=== PATIENT | female | born 1950 | race Caucasian/White ===

== ENCOUNTER 2019-02-02 01:54 | Emergency (ER) | payer MEDICARE, BC ==
[~2019-02-02] VITALS: Ht 152.4 cm; Wt 71.0 kg
[2019-02-02] MEDS ORDERED: normal saline 1000ML IV soln IVB ONE (02:10)
[2019-02-02] MEDS ORDERED: ondansetron/PF 4mg/2ml inj IV ONE (02:10)
[2019-02-02] MEDS: morphine 4 MG/ML inj SYRINge IV PRN ×2 (02:24→04:01)
[2019-02-02 02:41] LABS: BASOPHILS # (AUTO) 0.1 X10'3 (0-0.2); BASOPHILS % (AUTO) 1.1 % (0-1); EOSINOPHILS # (AUTO) 0.3 X10'3 (0-0.9); EOSINOPHILS % (AUTO) 3.8 % (0-6); HEMATOCRIT 38.7 % (35.0-45.0); HEMOGLOBIN 13.3 g/dl (12.0-16.0); LYMPHOCYTES # (AUTO) 1.6 X10'3 (1.1-4.8); LYMPHOCYTES % (AUTO) 24.8 % (21-51); MEAN CORPUSCULAR HEMOGLOBIN 31.3 PG (27.0-31.0); MEAN CORPUSCULAR HGB CONC 34.4 g/dL (33.0-36.5); MEAN CORPUSCULAR VOLUME 90.9 FL (78-98); MEAN PLATELET VOLUME 7.3 FL (7.4-10.4); MONOCYTES # (AUTO) 0.4 X10'3 (0-0.9); MONOCYTES % (AUTO) 6.8 % (2-12); NEUTROPHILS # (AUTO) 4.1 X10'3 (1.8-7.7); NEUTROPHILS % (AUTO) 63.5 % (42-75); PLATELET COUNT 267 X10'3 (140-440); RED BLOOD COUNT 4.25 X10'6 (4.20-5.60); RED CELL DISTRIBUTION WIDTH 13.3 % (11.5-14.5); WHITE BLOOD COUNT 6.5 X10'3 (4.5-11.0)
[2019-02-02 02:47] LABS: ALANINE AMINOTRANSFERASE 31 U/L (12-78); ALBUMIN 3.8 G/DL (3.4-5.0); ALBUMIN/GLOBULIN RATIO 1.2 (1.1-1.5); ALKALINE PHOSPHATASE 85 IU/L (46-116); ANION GAP 9 (8-16); ASPARTATE AMINO TRANSFERASE 18 U/L (10-37); BILIRUBIN,TOTAL 0.2 MG/DL (0.1-1.0); BLOOD UREA NITROGEN 18 MG/DL (7-18); BUN/CREATININE RATIO 20.7 (6.6-38.0); CALCIUM 9.2 MG/DL (8.5-10.1); CHLORIDE 106 MMOL/L (99-107); CREATININE 0.87 MG/DL (0.40-0.90); GLUCOSE 140 MG/DL (70-104); LIPASE 213 U/L (73-393); POTASSIUM 3.3 MMOL/L (3.5-5.1); SODIUM 140 MMOL/L (135-145); TOTAL CARBON DIOXIDE 25.3 MMOL/L (24-32); TOTAL PROTEIN 6.9 G/DL (6.4-8.2); eGFR 65 ML/MIN
[2019-02-02] MEDS ORDERED: LEVO75TA7 PO (04:06)
[2019-02-02] MEDS ORDERED: ONDA4TAB6 PO (04:07)
[2019-02-02] MEDS ORDERED: potassium Cl 20 mEq SR tablet PO ONE (04:10)
[2019-02-02 04:16] LABS: CLARITY,URINE CLEAR (Clear); COLOR,URINE YELLOW (Yellow); GLUCOSE, URINE NEGATIVE (Neg); KETONES,URINE NEGATIVE (Neg); LEUKOCYTE ESTERASE ,URINE NEGATIVE (Neg); NITRITES, URINE NEGATIVE (Neg); OCCULT BLOOD,URINE NEGATIVE (Neg); PROTEIN,URINE NEGATIVE (Neg); UROBILINOGEN,URINE 0.2 E.U/dL (0.2-1.0)
[2019-02-02 04:20] LABS: UA COLLECTION TYPE STRAIGHT CATH
[2019-02-02 04:26] VITALS: BP 106/74
== END 2019-02-02 04:27 | disposition home or self-care (01) ==
LOC: ER 01:55
DX: K52.9 Noninfective gastroenteritis and colitis, unspecified (principal); Z98.890 Other specified postprocedural states; Z85.9 Personal history of malignant neoplasm, unspecified; Z79.899 Other long term (current) drug therapy
CPT/HCPCS: 36415; 74176; 80053; 81003; 83690; 85025; 96361; 96374; 96375; 99284; J2270; J2405; J7030

== ENCOUNTER 2022-12-06 05:41 | Day surgery (SDC) | payer MEDICARE, BC ==
[2022-11-29 15:35] LABS: BILIRUBIN,URINE NEGATIVE (Neg); CLARITY,URINE CLEAR (Clear); COLOR,URINE YELLOW (Yellow); GLUCOSE, URINE NEGATIVE (Neg); KETONES,URINE NEGATIVE (Neg); LEUKOCYTE ESTERASE ,URINE NEGATIVE (Neg); NITRITES, URINE NEGATIVE (Neg); OCCULT BLOOD,URINE NEGATIVE (Neg); PROTEIN,URINE NEGATIVE (Neg); UROBILINOGEN,URINE 0.2 E.U/dL (0.2-1.0)
[2022-11-29 15:40] LABS: UA COLLECTION TYPE VOIDED
[2022-11-29 16:10] LABS: BASOPHILS % (AUTO) 0.7 % (0-1); EOSINOPHILS # (AUTO) 0.6 X10'3 (0-0.9); EOSINOPHILS % (AUTO) 9.6 % (0-6); LYMPHOCYTES # (AUTO) 2.1 X10'3 (1.1-4.8); LYMPHOCYTES % (AUTO) 32.3 % (21-51); MEAN CORPUSCULAR HEMOGLOBIN 30.9 PG (27.0-31.0); MEAN CORPUSCULAR HGB CONC 33.8 g/dL (33.0-36.5); MEAN CORPUSCULAR VOLUME 91.2 FL (78-98); MEAN PLATELET VOLUME 7.6 FL (7.4-10.4); MONOCYTES # (AUTO) 0.4 X10'3 (0-0.9); NEUTROPHILS # (AUTO) 3.3 X10'3 (1.8-7.7); NEUTROPHILS % (AUTO) 51.4 % (42-75); PRE OP HEMATOCRIT 41.3 % (35.0-45.0); PRE OP PLATELET COUNT 316 X10'3 (140-440); PRE OP WHITE BLOOD COUNT 6.5 10'3 (4.8-10.8); RED BLOOD COUNT 4.52 X10'6 (4.20-5.60); RED CELL DISTRIBUTION WIDTH 13.9 % (11.5-14.5)
[2022-11-29 16:25] LABS: ALBUMIN 3.7 G/DL (3.4-5.0); ALBUMIN/GLOBULIN RATIO 1.1 (1.1-1.5); ALKALINE PHOSPHATASE 92 IU/L (46-116); BLOOD UREA NITROGEN 13 MG/DL (7-18); CALCIUM 9.1 MG/DL (8.5-10.1); CHLORIDE 106 MMOL/L (99-107); CREATININE 0.81 MG/DL (0.40-0.90); PRE OP ALT 25 U/L (30-65); PRE OP ANION GAP 4 (8-16); PRE OP AST 18 U/L (10-37); PRE OP BILIRUB, TOTAL 0.2 MG/DL (0.0-1.0); PRE OP GLUCOSE 108 MG/DL (70-104); PRE OP POTASSIUM 3.5 MMOL/L (3.4-5.1); PRE OP SODIUM 137 MMOL/L (135-145); TOTAL CARBON DIOXIDE 26.8 MMOL/L (24-32); eGFR 70 ML/MIN
[~2022-12-06] VITALS: Ht 149.9 cm; Wt 74.2 kg
[2022-12-06] VITALS (34 sets, daily range): BP systolic 98–127; BP diastolic 46–66; PULSE 47–77; RESP 11–22; TEMP 97.5–97.9; O2SAT 91–100
[2022-12-06] MEDS: ceFOXitin 2GM-NS 100mL ADDvant 100 ML IV ONE ×2 (05:30→06:33)
[~2022-12-06 05:41] MED LIST: LEVO75TA7 PO; famotidine 20mg tablet PO ONE
[2022-12-06] MEDS: ringers solution, lacted 1,000 ML IV SCH ×8 (06:34→21:09)
[2022-12-06] MEDS ORDERED: clindamycin phosphate 40gm vag cream ONE (07:09)
[2022-12-06] MEDS ORDERED: BUPIVAcaine 2.5mg/ml inj 50ml vial (contains preservative) ONE (07:09)
[2022-12-06] MEDS ORDERED: vasoPRESSIN 20 units/ml inj. ONE (07:10)
[2022-12-06] MEDS ORDERED: neomy sulf/polymyxin B sulf. GU irrigation 1ml amp IR ONE ×2 (07:23→08:02)
[2022-12-06] MEDS ORDERED: furosemide 20 MG/2 ML vial ONE (07:28)
[2022-12-06] MEDS ORDERED: sevoflurane 250ml liquid IH ONE (07:28)
[2022-12-06] MEDS ORDERED: fentaNYL/PF 50MCG/1 ML 2ML syringe ONE (07:30)
[2022-12-06] MEDS ORDERED: midazolam 1 mg/ML 2ml injection ONE (07:31)
[2022-12-06] MEDS ORDERED: rocuronium 10mg/ml inj IV ONE (07:31)
[2022-12-06] MEDS ORDERED: propofol inj 20 ML IV ONE (07:32)
[2022-12-06] MEDS ORDERED: BUPIVAcaine/PF 2.5 mg/ml (0.25%) 30ml vial IJ ONE ×2 (08:00→08:01)
[2022-12-06] MEDS ORDERED: acetaminophen 1,000mg/100ml IV 100 ML IV ONE (08:53)
[2022-12-06] MEDS ORDERED: ondansetron/PF 4mg/2ml inj ONE (08:54)
[2022-12-06] MEDS ORDERED: dexamethasone sod phosphate 4mg/ml inj. ONE (08:54)
[2022-12-06] MEDS ORDERED: proCHLORperazine 10 MG/2 ml inj IV PRN (09:10)
[2022-12-06] MEDS ORDERED: morphine 2 MG/ML inj. syringe IV PRN (09:10)
[2022-12-06] MEDS ORDERED: ondansetron/PF 4mg/2ml inj IV PRN ×2 (09:10→10:55)
[2022-12-06] MEDS ORDERED: morphine 4 MG/ML inj SYRINge IV PRN (09:10)
[2022-12-06] MEDS ORDERED: meperidine/PF 25mg/ml syringe IV PRN ×2 (09:10)
[2022-12-06] MEDS ORDERED: methylene blue (5mg/ml) 50mg/10ml ampul IV ONE (10:25)
[2022-12-06] MEDS ORDERED: normal saline 500ml IV soln 500 ML IV PRN (10:55)
[2022-12-06] MEDS ORDERED: temazepam 15mg capsule PO PRN (10:55)
[2022-12-06] MEDS ORDERED: diphenhydrAMINE 50 mg/ml inj IV PRN (10:55)
[2022-12-06] MEDS ORDERED: LORazepam 2 mg/ml vial IV PRN (10:55)
[2022-12-06] MEDS ORDERED: HYDROcodone/acetaminophen 5mg/325mg tablet PO PRN (10:55)
[2022-12-06] MEDS ORDERED: magnesium hydroxide 30ml (MOM) UD suspension PO PRN (10:55)
[2022-12-06] MEDS ORDERED: metoclopramide 5 mg/ml inj IV PRN (10:55)
[2022-12-06] MEDS ORDERED: sugammadex 200mg/2ml injection IV ONE (11:00)
--- NOTE | 2022-12-06 11:09 | NUR ---
Received from OR via BED, accompanied by Anesthesiologist and report given by NILESH Anesthesiologist. PATIENT WAKING UP, NO S/S OF PAIN, V/S WNL, SCD ON, ABDOMEN LAP SITE CLEAN W/ NO S/S OF COMPLICATIONS. PT HAS 20G PIV TO LEFT WRIST WITH LR INFUSING @ 100ML/HR ORDERED. PT LOWER ABDOMEN DERMABOND INCISION SITES AND BILAT LOWER ABD THAT ARE C/D/I, CATRACHO PAD WITH MESH BRIEF IS C/D/I. PT RESTING COMFORTABLY. WILL CONTINUE TO ASSESS. Addendum: 12/06/22 at 1156 by Carlitos Velásquez RN Amended: Links added.
[2022-12-06] MEDS: meperidine/PF 25mg/ml syringe IV PRN ×5 (11:35→15:53)
[2022-12-06] MEDS: ketorolac tromethamine 15mg/ml inj. IV SCH ×4 (13:20→21:09)
--- NOTE | 2022-12-06 15:09 | NUR ---
PATIENT HAS MET ALL CRITERIA FOR TRANSFER TO ORTHO FLOOR. VSS. DRESSINGS INTACT. BED LOW, CALL LIGHT PRESENT AND 2 RAILS UP. RN PRESENT TO ACCEPT CARE OF PATIENT AND REPORT HAS BEEN CALLED. ALL QUESTIONS ANSWERED TO ACCEPTING RN Addendum: 12/06/22 at 1520 by Carlitos Velásquez RN Amended: Links added.
[2022-12-06] MEDS: acetaminophen 325mg tablet PO PRN (18:09)
--- NOTE | 2022-12-06 18:30 | NUR ---
Patient in room [facility]TH[facility] 4006. I have received report from ANSLEY CARRASCO and had the opportunity to ask questions and assume patient care.
[2022-12-06] MEDS: docusate sod 100mg capsule PO SCH (21:08)
[2022-12-07] MEDS: ringers solution, lacted 1,000 ML IV SCH ×2 (04:23→10:55)
[2022-12-07 06:00] VITALS: BP 100/52; PULSE 60; RESP 16; TEMP 97.4; O2SAT 97
--- NOTE | 2022-12-07 06:00 | NUR ---
Patient in room ORTH[facility] 4006. I have received report from Neil and had the opportunity to ask questions and assume patient care.
--- NOTE | 2022-12-07 06:48 | NUR ---
Problems reprioritized. Patient report given, questions answered & plan of care reviewed with NITHYA CARRASCO.
[2022-12-07] MEDS ORDERED: levoTHYROXINE 75mcg tablet PO SCH (07:00)
[2022-12-07 07:27] VITALS: RESP 16; O2SAT 97
[2022-12-07] MEDS ORDERED: enoxaparin 40mg/0.4ml syringe SQ SCH (08:00)
[2022-12-07] MEDS: docusate sod 100mg capsule PO SCH (09:13)
[2022-12-07] MEDS: acetaminophen 325mg tablet PO PRN ×2 (09:18→15:44)
[2022-12-07 10:00] VITALS: BP 97/51; PULSE 62; RESP 16; TEMP 97.4; O2SAT 97
[2022-12-07] MEDS: ketorolac tromethamine 15mg/ml inj. IV SCH (14:00)
[2022-12-07 14:18] LABS: BASOPHILS # (AUTO) 0.1 X10'3 (0-0.2); BASOPHILS % (AUTO) 0.5 % (0-1); EOSINOPHILS % (AUTO) 0.3 % (0-6); HEMATOCRIT 33.9 % (35.0-45.0); HEMOGLOBIN 11.3 g/dl (12.0-16.0); LYMPHOCYTES # (AUTO) 2.5 X10'3 (1.1-4.8); LYMPHOCYTES % (AUTO) 25.4 % (21-51); MEAN CORPUSCULAR HEMOGLOBIN 30.7 PG (27.0-31.0); MEAN CORPUSCULAR HGB CONC 33.4 g/dL (33.0-36.5); MEAN PLATELET VOLUME 7.9 FL (7.4-10.4); MONOCYTES # (AUTO) 0.7 X10'3 (0-0.9); MONOCYTES % (AUTO) 6.8 % (2-12); NEUTROPHILS # (AUTO) 6.7 X10'3 (1.8-7.7); PLATELET COUNT 244 X10'3 (140-440); RED BLOOD COUNT 3.68 X10'6 (4.20-5.60); RED CELL DISTRIBUTION WIDTH 13.5 % (11.5-14.5)
[2022-12-07 14:26] LABS: ALBUMIN 2.8 G/DL (3.4-5.0); ANION GAP 5 (8-16); BLOOD UREA NITROGEN 9 MG/DL (7-18); BUN/CREATININE RATIO 11.4 (10.0-20.0); CALCIUM 8.2 MG/DL (8.5-10.1); CHLORIDE 102 MMOL/L (99-107); CREATININE 0.79 MG/DL (0.40-0.90); GLUCOSE 112 MG/DL (70-104); POTASSIUM 3.7 MMOL/L (3.5-5.1); SODIUM 135 MMOL/L (135-145); TOTAL CARBON DIOXIDE 28.1 MMOL/L (24-32); eCRCL 45 ML/MIN; eGFR 72 ML/MIN
--- NOTE | 2022-12-07 15:57 | NUR ---
Discharge instructions were reviewed with patient and patient's spouse. Patient verbalized understanding and states she is ready to discharge home. Patient's spouse assisted patient with dressing. Patient was wheeled downstairs to be driven home by the spouse. All of patient's belongings were returned to patient.
== END 2022-12-07 16:00 | disposition home or self-care (01) ==
LOC: PAS 05:41 → ORTHO 4S 15:24 → PAS 12-07 16:00
PROVIDERS: ATTEND Obstetrics & Gynecology Obstetrics
DX: N81.3 Complete uterovaginal prolapse (principal); N84.0 Polyp of corpus uteri; D25.1 Intramural leiomyoma of uterus; Z79.899 Other long term (current) drug therapy; N88.8 Other specified noninflammatory disorders of cervix uteri; Z98.890 Other specified postprocedural states; K21.9 Gastro-esophageal reflux disease without esophagitis; E03.9 Hypothyroidism, unspecified
CPT/HCPCS: 36415; 57260; 57283; 58552; 71046; 80048; 80053; 81003; 82948; 85025; 86885; 86900; 86901; 93005; J0131; J0694; J1100; J1650; J1885; J1940; J2175; J2250; J2405; J2704; J3010; J3490; J7030; J7120; Q9968; Z7506; Z7508; Z7512; A4314; A4615; A4618; A7000; G0378